=== PATIENT | female | born 1995 | race African-American/Black ===

== ENCOUNTER 2016-11-06 10:16 | Emergency (ER) | payer OTHER ==
[2016-11-06 11:29] VITALS: BP 118/76
--- NOTE | 2016-11-06 11:45 | REP ---
REASON: Pain after trauma. PRIORS: None. FINDINGS: The compartments are symmetric and relatively well maintained. There is no acute fracture or destructive osseous lesion. Signed by Phillip Yoder DO 11/06/2016 03:34 P
== END 2016-11-06 11:56 | disposition home or self-care (01) ==
LOC: M ED 10:16
DX: S83.421A Sprain of lateral collateral ligament of right knee, initial encounter (principal); X58.XXXA Exposure to other specified factors, initial encounter; Y92.018 Other place in single-family (private) house as the place of occurrence of the external cause; Y99.9 Unspecified external cause status; Y93.9 Activity, unspecified; Z91.02 Food additives allergy status